=== PATIENT | female | born 1945 | race Caucasian/White ===

== ENCOUNTER 2017-02-21 21:16 | Emergency (ER) | payer OTHER ==
[~2017-02-21] VITALS: Ht 162.6 cm; Wt 52.0 kg
[~2017-02-21 21:16] MED LIST: CLON0.5T PO; IBUP600T26 PO; LEVO.05 PO; LORTA5 PO; METH750T2 PO; MOBI15TA PO; SIMV20 PO
[2017-02-21 21:26] VITALS: BP 143/74; PULSE 68; RESP 20; TEMP 98; O2SAT 100
[2017-02-21] MEDS ORDERED: SIMV20TA PO (21:36)
[2017-02-21] MEDS ORDERED: LEVO50TA4 PO (21:36)
--- NOTE | 2017-02-21 21:48 | PD ---
HPI Chief Complaint: Fall Time Seen by Provider: 21:33 Travel History International Travel<30 days: No Contact w/Intl Traveler<30days: No Traveled to known affect area: No History of Present Illness HPI 71 yo F, patient drank 3 alcoholic drinks tonight and took her dogs for a walk. She had a fall w L frontotemporal head trauma. It was witnessed by neighbors who called EMS. On scene the patient was observed to be altered and was brought to the ER; initially she refused on scene however she later agreed to come. Pain about L forehead with bleeding reported. Onset sudden. PFSH Past Medical History Anxiety: Yes Depression: Yes Cancer: Yes (UTERINE) Diabetes: Yes Diminished Hearing: No Hepatitis: No Medical other: Yes (ARTHRITIS; FIBROMYALGIA) Musculoskeletal: Yes (FIBROMYLAGIA, CHRONIC BACK PAIN) Immunizations Current: Yes Thyroid Disease: Yes (HYPOTHYROID) Tetanus Vaccination: < 5 Years ?: Not Menopausal: No Past Surgical History Abdominal Surgery: Yes (APPEND) Appendectomy: Yes Gynecologic Surgery: Yes (HYSTERECTOMY) Hysterectomy: Yes Oral Surgery: Yes (T&A AGE 6) Thoracic Surgery: Yes (JONNATHAN BREAST IMPLANT) Other Surgery: Yes Social History Alcohol Use: Yes (SOCIALLY) Tobacco Use: No Substance Use: No Allergies-Medications (Allergen,Severity, Reaction): Coded Allergies: Prochlorperazine (Verified Allergy, Severe, Itching, 02/21/17) Phenergan (Verified Allergy, Intermediate, Itching, 02/21/17) Reported Meds & Prescriptions Reported Meds & Active Scripts Active Reported Levothyroxine (Levothyroxine Sodium) 50 Mcg Tab 50 Mcg PO DAILY Simvastatin 20 Mg Tab 20 Mg PO DAILY Review of Systems Except as stated in HPI: all other systems reviewed are Neg General / Constitutional: No: Fever, Chills Psychiatric: Positive: Substance Abuse Physical Exam Narrative GENERAL: 71 yo F, WNWD, AOx2 (does not know date; knows 4 quarters in dollar; can perform serial 3 subtractions from 10) SKIN: Warm and dry. Multiple abrasions about the L forearm. 1cm irregular laceration/puncture wound L temporal scalp. HEAD: Atraumatic. Normocephalic. EYES: Pupils equal and round. No scleral icterus. No injection or drainage. ENT: No nasal bleeding or discharge. Mucous membranes pink and moist. NECK: Trachea midline. No JVD. CARDIOVASCULAR: Regular rate and rhythm. RESPIRATORY: No accessory muscle use. Clear to auscultation. Breath sounds equal bilaterally. GASTROINTESTINAL: Abdomen soft, non-tender, nondistended. Hepatic and splenic margins not palpable. MUSCULOSKELETAL: Extremities without clubbing, cyanosis, or edema. No obvious deformities. NEUROLOGICAL: Awake and alert. No obvious cranial nerve deficits. Motor grossly within normal limits. Five out of 5 muscle strength in the arms and legs. Normal speech. PSYCHIATRIC: EtOH affect. Cooperative though agitated. Redirectable; Walks in and out of her room at times, increasingly agitated. Data Data Last Documented VS Vital Signs Date Time Temp Pulse Resp B/P Pulse Ox O2 Delivery O2 Flow Rate FiO2 02/21/17 23:31 73 20 155/81 97 02/21/17 21:26 98.0 VS reviewed Orders Complete Blood Count With Diff (02/21/17 22:33) Comprehensive Metabolic Panel (02/21/17 22:33) Ct Brain W/O Iv Contrast(Rout) (02/21/17 22:33) Blood Glucose (02/21/17 22:33) Ecg Monitoring (02/21/17 22:33) Iv Access Insert/Monitor (02/21/17 22:33) Oximetry (02/21/17 22:33) Sodium Chloride 0.9% Flush (Ns Flush) (02/21/17 22:45) Drug Screen, Random Urine (02/21/17 22:33) Alcohol (Ethanol) (02/21/17 22:33) Labs Laboratory Tests Test 02/21/17 02/21/17 22:35 23:12 Urine Opiates Screen NEG Urine Barbiturates Screen NEG Urine Amphetamines Screen NEG Urine Benzodiazepines Screen NEG Urine Cocaine Screen NEG Urine Cannabinoids Screen NEG White Blood Count 6.1 TH/MM3 Red Blood Count 3.67 MIL/MM3 Hemoglobin 10.9 GM/DL Hematocrit 32.6 % Mean Corpuscular Volume 88.9 FL Mean Corpuscular Hemoglobin 29.6 PG Mean Corpuscular Hemoglobin 33.3 % Concent Red Cell Distribution Width 13.4 % Platelet Count 349 TH/MM3 Mean Platelet Volume 7.7 FL Neutrophils (%) (Auto) 57.6 % Lymphocytes (%) (Auto) 31.8 % Monocytes (%) (Auto) 6.7 % Eosinophils (%) (Auto) 1.4 % Basophils (%) (Auto) 2.5 % Neutrophils # (Auto) 3.5 TH/MM3 Lymphocytes # (Auto) 1.9 TH/MM3 Monocytes # (Auto) 0.4 TH/MM3 Eosinophils # (Auto) 0.1 TH/MM3 Basophils # (Auto) 0.2 TH/MM3 CBC Comment DIFF FINAL Differential Comment Sodium Level 143 MEQ/L Potassium Level 4.1 MEQ/L Chloride Level 109 MEQ/L Carbon Dioxide Level 24.0 MEQ/L Anion Gap 10 MEQ/L Blood Urea Nitrogen 19 MG/DL Creatinine 1.00 MG/DL Estimat Glomerular Filtration 55 ML/MIN Rate Random Glucose 112 MG/DL Calcium Level 8.4 MG/DL Total Bilirubin 0.3 MG/DL Aspartate Amino Transf 25 U/L (AST/SGOT) Alanine Aminotransferase 22 U/L (ALT/SGPT) Alkaline Phosphatase 134 U/L Total Protein 7.4 GM/DL Albumin 3.9 GM/DL Ethyl Alcohol Level 243 MG/DL [facility] Medical Decision Making Medical Screen Exam Complete: Yes Emergency Medical Condition: Yes Medical Record Reviewed: Yes Differential Diagnosis ICH, etoh intox, dementia, CHI, scalp contusion Narrative Course CT Head: No acute injury CBC & BMP Diagram 02/21/17 23:12 LFTs essentially normal EtOH 242 UTox: frost-negative CT Head: No acute ICH Pt reassessed several times throughout ER course. She is medically clear however we'll observe her until she demonstrates clinical sobriety prior to discharge. Diagnosis Primary Impression: Fall Qualified Code: W19.XXXA - Fall, initial encounter Additional Impression: ETOH abuse Admitting Information Admitting Physician Requests: Observation Referrals: Primary Care Physician 2 days Additional Instructions: You have a choice when it comes to health care, and we are glad that you chose [facility]. Hopefully, we have met your expectations on today's visit. You are welcome to return to [facility] at any time, as we are committed to meeting the health care needs of our community. Med/Other Pt SpecificInfo: No Change to Meds Disposition: DISCHARGE HOME Condition: Stable Sandro Newby MD February 21, 2017 21:48 Sandro Newby MD February 21, 2017 21:48
[2017-02-21] MEDS ORDERED: SODIUM CHLORIDE 0.9% FLUSH 10 ML FLUSH IVF PRN (22:45)
[2017-02-21 22:57] LABS: AMPHETAMINE, URINE NEG (NEG); BARBITURATES, URINE NEG (NEG); COCAINE, URINE NEG (NEG)
[2017-02-21 23:00] VITALS: BP 139/78; PULSE 72; RESP 20; O2SAT 98
--- NOTE | 2017-02-21 23:12 | RADHPO ---
EXAM DATE/TIME: 02/21/2017 22:46 [facility] COMPARISON: CT BRAIN W/O CONTRAST, February 23, 2012, 9:12. INDICATIONS : Fall. Left frontal head trauma. Altered mental status. RADIATION DOSE: 51.33 CTDIvol (mGy) MEDICAL HISTORY : Diabetes. SURGICAL HISTORY : None. ENCOUNTER: Initial ACUITY: 1 day PAIN SCALE: 8/10 LOCATION: Left frontal TECHNIQUE: Multiple contiguous axial images were obtained of the head. Using automated exposure control and adj ustment of the mA and/or kV according to patient size, radiation dose was kept as low as reasonably a chievable to obtain optimal diagnostic quality images. FINDINGS: CEREBRUM: Scattered areas of low-attenuation are seen throughout the white matter. The ventricles are normal fo r age. No evidence of midline shift, mass lesion, hemorrhage or acute infarction. No extra-axial fl uid collections are seen. POSTERIOR FOSSA: The cerebellum and brainstem are intact. The 4th ventricle is midline. The cerebellopontine angle i s unremarkable. EXTRACRANIAL: The visualized portion of the orbits is intact. SKULL: The calvaria is intact. No evidence of skull fracture. CONCLUSION: 1. Nonspecific white matter changes. 2. No acute intracranial abnormality. Hernando Roche MD on February 21, 2017 at 23:10 Board Certified Radiologist. This report was verified electronically.
[2017-02-21 23:21] LABS: AUTOMATED NEUTROPHIL # 3.5 TH/MM3 (1.8-7.7); BASOPHIL # 0.2 TH/MM3 (0-0.2); BASOPHIL % 2.5 % (0.0-2.0); EOSINOPHIL # 0.1 TH/MM3 (0-0.4); EOSINOPHIL % 1.4 % (0.0-4.0); HEMATOCRIT 32.6 % (35.0-46.0); HEMO FLAGS DIFF FINAL; LYMPH % 31.8 % (9.0-44.0); LYMPHOCYTE # 1.9 TH/MM3 (1.0-4.8); MEAN CELL VOLUME 88.9 FL (80.0-100.0); MEAN CORPUSCULAR HEMOGLOBIN 29.6 PG (27.0-34.0); MEAN CORPUSCULAR HGB CONC 33.3 % (32.0-36.0); MONO % 6.7 % (0.0-8.0); NEUT % 57.6 % (16.0-70.0); PLATELET COUNT 349 TH/MM3 (150-450); RED BLOOD COUNT 3.67 MIL/MM3 (4.00-5.30); RED CELL DISTRIBUTION WIDTH 13.4 % (11.6-17.2); WHITE BLOOD COUNT 6.1 TH/MM3 (4.0-11.0)
[2017-02-21 23:29] LABS: CHLORIDE 109 MEQ/L (98-107); POTASSIUM 4.1 MEQ/L (3.5-5.1); SODIUM (NA) 143 MEQ/L (136-145)
[2017-02-21 23:31] VITALS: BP 155/81; PULSE 73; RESP 20; O2SAT 97
[2017-02-21 23:32] LABS: ANION GAP 10 MEQ/L (5-15); BLOOD UREA NITROGEN 19 MG/DL (7-18)
[2017-02-21 23:35] LABS: ALT (GPT) 22 U/L (10-53); AST (GOT) 25 U/L (15-37)
[2017-02-21 23:36] LABS: GLOMERULAR FILTRATION RATE 55 ML/MIN (>89)
[2017-02-21 23:37] LABS: TOTAL BILIRUBIN ADULT 0.3 MG/DL (0.2-1.0)
[2017-02-21 23:38] LABS: ALKALINE PHOSPHATASE 134 U/L (45-117)
[2017-02-22 00:44] VITALS: BP 148/82; PULSE 75; RESP 20; O2SAT 98
[2017-02-22 02:30] VITALS: BP 156/86; PULSE 71; RESP 20; O2SAT 98
[2017-02-22 04:30] VITALS: BP 179/95; PULSE 91; RESP 20; O2SAT 99
[2017-02-22 06:27] VITALS: BP 153/77
== END 2017-02-22 06:40 | disposition home or self-care (01) ==
LOC: PHED 21:16 → PHEDA 02-22 00:09 → UNDOADMOB 02-22 00:09 → PHED 02-22 06:40
DX: S50.812A Abrasion of left forearm, initial encounter (principal); S01.03XA Puncture wound without foreign body of scalp, initial encounter; F41.8 Other specified anxiety disorders; E11.8 Type 2 diabetes mellitus with unspecified complications; E03.9 Hypothyroidism, unspecified; F10.10 Alcohol abuse, uncomplicated; Y90.8 Blood alcohol level of 240 mg/100 ml or more; W18.39XA Other fall on same level, initial encounter; Y93.K1 Activity, walking an animal; Y92.89 Other specified places as the place of occurrence of the external cause; Y99.8 Other external cause status
CPT/HCPCS: 70450; 80053; 80307; 85025